=== PATIENT | female | born 1940 | race Caucasian/White ===

== ENCOUNTER 2017-11-15 11:46 | Inpatient (IN) | payer MEDICARE, OTHER ==
[2017-11-15] MEDS: ALBUTEROL 0.5% (NEB) 2.5 MG/0.5 ML AMP INH ×2 (14:15→17:02)
[2017-11-15] MEDS: IPRATROPIUM (NEB) 0.5 MG/2.5 ML AMP INH (14:15)
[2017-11-15] MEDS: predniSONE 50 MG TAB PO (15:05)
[2017-11-15 18:07] LABS: ADD MAN DIFF? NO
[2017-11-15 18:09] LABS: WHITE BLOOD COUNT 9.5 10^3/ul (4.8-10.8)
[2017-11-15 18:09] LABS: BASOPHIL # 0.1 10^3/ul (0.0-0.1); BASOPHILS % 0.7 % (0.0-2.0); EOSINOPHILS # 0.3 10^3/ul (0.0-0.5); EOSINOPHILS % 2.6 % (0.0-7.0); HEMATOCRIT 42.4 % (37.0-47.0); HEMOGLOBIN 13.9 g/dl (12.0-16.0); LYMPHOCYTES # 2.6 10^3/ul (0.8-2.9); LYMPHOCYTES % 27.5 % (15.0-51.0); MEAN CORPUSCULAR HEMOGLOBIN 29.3 pg (29.0-33.0); MEAN CORPUSCULAR HGB CONC 32.8 g/dl (32.0-37.0); MEAN CORPUSCULAR VOLUME 89.3 fl (82.0-101.0); MEAN PLATELET VOLUME 11.9 fl (7.4-10.4); MONOCYTE # 0.3 10^3/ul (0.3-0.9); MONOCYTES % 3.1 % (0.0-11.0); NEUTROPHIL # 6.2 10^3/ul (1.6-7.5); NEUTROPHILS % 65.7 % (39.0-77.0); PLATELET COUNT 178 10^3/UL (140-415); RED BLOOD COUNT 4.75 10^6/ul (4.20-5.40); RED CELL DISTRIBUTION WIDTH 12.8 % (11.5-14.5)
[2017-11-15 18:34] LABS: ANION GAP 13 (8-16); BLOOD UREA NITROGEN 12 mg/dl (7-20); CALCIUM 9.4 mg/dl (8.4-10.2); CARBON DIOXIDE 30 mmol/L (21-31); CHLORIDE 98 mmol/L (97-110); CREATININE 0.51 mg/dl (0.44-1.00); GLUCOSE 215 mg/dl (70-220); POTASSIUM 3.9 mmol/L (3.5-5.1); SODIUM 137 mmol/L (135-144)
[2017-11-15 18:48] LABS: TROPONIN-I < 0.012 ng/ml (0.00-0.12)
[2017-11-15] MEDS ORDERED: ACETAMINOPHEN 325 MG TAB PO ×2 (19:30→20:00)
[2017-11-15] MEDS ORDERED: ONDANSETRON 4 MG INJ IV (19:30)
[2017-11-15] MEDS ORDERED: IPRATROPIUM (NEB) 0.5 MG/2.5 ML AMP HHN (20:00)
[2017-11-15] MEDS ORDERED: NACL 0.9% 3 ML SYG IV (20:00)
[2017-11-15] MEDS ORDERED: ONDANSETRON 4 MG TAB PO (20:00)
[2017-11-15] MEDS ORDERED: DOCUSATE SODIUM 100 MG CAP PO (20:00)
[2017-11-15] MEDS ORDERED: BISACODYL (EC) 5 MG TAB PO (20:00)
[2017-11-15] MEDS ORDERED: GLUCOSE GEL 15 GRAM TUBE BUCCAL (21:00)
[2017-11-15] MEDS ORDERED: GLUCOSE GEL 15 GRAM TUBE PO ×2 (21:00)
[2017-11-15] MEDS ORDERED: GLUCAGON 1 MG INJ IM (21:00)
[2017-11-15] MEDS ORDERED: DEXTROSE 50% 50 ML SYRINGE IV ×2 (21:00)
[2017-11-15] MEDS ORDERED: NON-FORMULARY/PATIENT OWN MED (Mometasone-Formoterol (Dulera) 2 PUFFS) IH (21:00)
[2017-11-15] MEDS: INSULIN GLARGINE [LANtus] 3 ML PEN SC (21:38)
[2017-11-15] MEDS: INSULIN ASPART [NOVOLOG] 3 ML PEN SC (21:41)
[2017-11-15] MEDS: SALMETEROL/FLUTICASONE 250/50 INHA INH (22:44)
[2017-11-15] MEDS: MONTELUKAST 10 MG TAB PO (22:44)
[2017-11-15] MEDS: ALBUTEROL 0.083% (NEB) 2.5 MG/3 ML AMP HHN (23:07)
[2017-11-16] MEDS: ALBUTEROL 0.083% (NEB) 2.5 MG/3 ML AMP HHN ×6 (02:03→20:14)
[2017-11-16] MEDS: ACCU-CHEK XX (02:13)
[2017-11-16 05:28] LABS: ADD MAN DIFF? NO
[2017-11-16 05:49] LABS: BASOPHILS % 0.6 % (0.0-2.0); HEMATOCRIT 37.6 % (37.0-47.0); HEMOGLOBIN 12.4 g/dl (12.0-16.0); LYMPHOCYTES # 1.2 10^3/ul (0.8-2.9); LYMPHOCYTES % 21.2 % (15.0-51.0); MEAN CORPUSCULAR VOLUME 88.1 fl (82.0-101.0); MEAN PLATELET VOLUME 12.3 fl (7.4-10.4); MONOCYTE # 0.2 10^3/ul (0.3-0.9); MONOCYTES % 4.2 % (0.0-11.0); NEUTROPHILS % 73.6 % (39.0-77.0); PLATELET COUNT 176 10^3/UL (140-415); RED BLOOD COUNT 4.27 10^6/ul (4.20-5.40); RED CELL DISTRIBUTION WIDTH 12.7 % (11.5-14.5)
[2017-11-16 05:49] LABS: WHITE BLOOD COUNT 5.4 10^3/ul (4.8-10.8)
[2017-11-16] MEDS: PANTOPRAZOLE (EC) 40 MG TAB PO (06:08)
[2017-11-16 06:37] LABS: ALANINE AMINOTRANSFERASE 23 IU/L (13-69); ALBUMIN 3.6 g/dl (3.3-4.9); ALBUMIN/GLOBULIN RATIO 1.02; ALKALINE PHOSPHATASE 90 IU/L (42-121); ANION GAP 16 (8-16); ASPARTATE AMINO TRANSFERASE 18 IU/L (15-46); BILIRUBIN,INDIRECT 0.2 mg/dl (0-1.1); BILIRUBIN,TOTAL 0.2 mg/dl (0.2-1.3); BLOOD UREA NITROGEN 19 mg/dl (7-20); CALCIUM 9.2 mg/dl (8.4-10.2); CARBON DIOXIDE 31 mmol/L (21-31); CHLORIDE 98 mmol/L (97-110); CREATININE 0.56 mg/dl (0.44-1.00); GLUCOSE 313 mg/dl (70-220); MAGNESIUM 1.5 mg/dl (1.7-2.5); POTASSIUM 4.1 mmol/L (3.5-5.1); SODIUM 141 mmol/L (135-144); TOTAL PROTEIN 7.1 g/dl (6.1-8.1)
[2017-11-16 07:56] LABS: HEMOGLOBIN A1C 9.5 % (0-5.9)
[2017-11-16] MEDS: predniSONE 50 MG TAB PO (08:59)
[2017-11-16] MEDS: EZETIMIBE 10 MG TAB PO (08:59)
[2017-11-16] MEDS: SALMETEROL/FLUTICASONE 250/50 INHA INH ×2 (08:59→20:26)
[2017-11-16] MEDS: INSULIN ASPART [NOVOLOG] 3 ML PEN SC ×7 (09:06→20:30)
[2017-11-16] MEDS: MAGNESIUM SULFATE 2 GM/50 ML 50 ML IVPB (12:23)
[2017-11-16] MEDS: MONTELUKAST 10 MG TAB PO (20:27)
[2017-11-16] MEDS: INSULIN GLARGINE [LANtus] 3 ML PEN SC (20:31)
[2017-11-17] MEDS: ALBUTEROL 0.083% (NEB) 2.5 MG/3 ML AMP HHN ×6 (00:41→19:25)
[2017-11-17] MEDS: ACCU-CHEK XX (01:52)
[2017-11-17] MEDS: PANTOPRAZOLE (EC) 40 MG TAB PO (05:38)
[2017-11-17 05:51] LABS: ADD MAN DIFF? NO
[2017-11-17 05:59] LABS: WHITE BLOOD COUNT 7.7 10^3/ul (4.8-10.8)
[2017-11-17 05:59] LABS: BASOPHIL # 0.1 10^3/ul (0.0-0.1); BASOPHILS % 0.6 % (0.0-2.0); EOSINOPHILS % 0.5 % (0.0-7.0); HEMATOCRIT 35.4 % (37.0-47.0); HEMOGLOBIN 11.8 g/dl (12.0-16.0); LYMPHOCYTES # 2.4 10^3/ul (0.8-2.9); LYMPHOCYTES % 30.6 % (15.0-51.0); MEAN CORPUSCULAR HEMOGLOBIN 29.5 pg (29.0-33.0); MEAN CORPUSCULAR HGB CONC 33.3 g/dl (32.0-37.0); MEAN CORPUSCULAR VOLUME 88.5 fl (82.0-101.0); MEAN PLATELET VOLUME 12.1 fl (7.4-10.4); MONOCYTE # 0.7 10^3/ul (0.3-0.9); MONOCYTES % 8.5 % (0.0-11.0); NEUTROPHIL # 4.6 10^3/ul (1.6-7.5); NEUTROPHILS % 59.5 % (39.0-77.0); PLATELET COUNT 174 10^3/UL (140-415); RED CELL DISTRIBUTION WIDTH 13.2 % (11.5-14.5)
[2017-11-17 06:29] LABS: INR 1.01; PROTIME 13.4 Sec (11.9-14.9)
[2017-11-17 06:30] LABS: PARTIAL THROMBOPLASTIN TIME 30.6 Sec (25.0-35.0)
[2017-11-17 07:04] LABS: ANION GAP 15 (8-16); BLOOD UREA NITROGEN 19 mg/dl (7-20); CALCIUM 9.1 mg/dl (8.4-10.2); CARBON DIOXIDE 29 mmol/L (21-31); CHLORIDE 100 mmol/L (97-110); CREATININE 0.61 mg/dl (0.44-1.00); GLUCOSE 180 mg/dl (70-220); POTASSIUM 3.8 mmol/L (3.5-5.1); SODIUM 140 mmol/L (135-144)
[2017-11-17 07:07] LABS: CHOLESTEROL 151 mg/dl (100-200); HDL CHOLESTEROL 49 mg/dl (33-92); LDL CHOLESTEROL,CALCULATED 90 mg/dl; TRIGLYCERIDES 62 mg/dl (0-149)
[2017-11-17 07:07] LABS: PHOSPHORUS 4.3 mg/dl (2.5-4.9)
[2017-11-17] MEDS: INSULIN ASPART [NOVOLOG] 3 ML PEN SC ×7 (09:03→21:03)
[2017-11-17] MEDS: predniSONE 50 MG TAB PO (09:03)
[2017-11-17] MEDS: EZETIMIBE 10 MG TAB PO (09:03)
[2017-11-17] MEDS: SALMETEROL/FLUTICASONE 250/50 INHA INH ×2 (09:04→20:49)
[2017-11-17] MEDS: ENOXAPARIN 40 MG/0.4 ML SYG SC ×2 (09:30→12:29)
[2017-11-17] MEDS: MONTELUKAST 10 MG TAB PO (20:49)
[2017-11-17] MEDS: INSULIN GLARGINE [LANtus] 3 ML PEN SC (20:52)
[2017-11-18] MEDS: ALBUTEROL 0.083% (NEB) 2.5 MG/3 ML AMP HHN ×3 (00:46→09:00)
[2017-11-18] MEDS: ACCU-CHEK XX (02:11)
[2017-11-18 05:50] LABS: ADD MAN DIFF? NO
[2017-11-18] MEDS: PANTOPRAZOLE (EC) 40 MG TAB PO (05:53)
[2017-11-18 05:58] LABS: WHITE BLOOD COUNT 7.8 10^3/ul (4.8-10.8)
[2017-11-18 05:58] LABS: BASOPHIL # 0.1 10^3/ul (0.0-0.1); BASOPHILS % 0.8 % (0.0-2.0); EOSINOPHILS # 0.1 10^3/ul (0.0-0.5); EOSINOPHILS % 0.6 % (0.0-7.0); HEMATOCRIT 37.5 % (37.0-47.0); HEMOGLOBIN 12.4 g/dl (12.0-16.0); LYMPHOCYTES # 3.1 10^3/ul (0.8-2.9); LYMPHOCYTES % 39.2 % (15.0-51.0); MEAN CORPUSCULAR HEMOGLOBIN 29.5 pg (29.0-33.0); MEAN CORPUSCULAR HGB CONC 33.1 g/dl (32.0-37.0); MEAN CORPUSCULAR VOLUME 89.3 fl (82.0-101.0); MEAN PLATELET VOLUME 12.2 fl (7.4-10.4); MONOCYTE # 0.6 10^3/ul (0.3-0.9); MONOCYTES % 8.1 % (0.0-11.0); PLATELET COUNT 185 10^3/UL (140-415); RED CELL DISTRIBUTION WIDTH 13.2 % (11.5-14.5)
[2017-11-18 06:16] LABS: ANION GAP 13 (8-16); BLOOD UREA NITROGEN 18 mg/dl (7-20); CALCIUM 9.2 mg/dl (8.4-10.2); CARBON DIOXIDE 32 mmol/L (21-31); CHLORIDE 99 mmol/L (97-110); GLUCOSE 155 mg/dl (70-220); MAGNESIUM 1.8 mg/dl (1.7-2.5); POTASSIUM 4.1 mmol/L (3.5-5.1); SODIUM 140 mmol/L (135-144)
[2017-11-18 06:16] LABS: PHOSPHORUS 4.1 mg/dl (2.5-4.9)
[2017-11-18] MEDS: INSULIN ASPART [NOVOLOG] 3 ML PEN SC ×7 (07:50→21:08)
[2017-11-18] MEDS: ENOXAPARIN 40 MG/0.4 ML SYG SC (09:26)
[2017-11-18] MEDS: predniSONE 50 MG TAB PO (09:26)
[2017-11-18] MEDS: EZETIMIBE 10 MG TAB PO (09:26)
[2017-11-18] MEDS: SALMETEROL/FLUTICASONE 250/50 INHA INH ×2 (09:27→21:04)
[2017-11-18] MEDS: ALBUTEROL/IPRATROPIUM (NEB) 3 ML AMP HHN ×2 (14:20→20:33)
[2017-11-18] MEDS: MONTELUKAST 10 MG TAB PO (21:05)
[2017-11-18] MEDS: INSULIN GLARGINE [LANtus] 3 ML PEN SC (21:09)
[2017-11-19] MEDS: ACCU-CHEK XX (02:09)
[2017-11-19] MEDS: PANTOPRAZOLE (EC) 40 MG TAB PO (05:50)
[2017-11-19] MEDS: INSULIN ASPART [NOVOLOG] 3 ML PEN SC ×7 (07:50→21:00)
[2017-11-19] MEDS: ALBUTEROL/IPRATROPIUM (NEB) 3 ML AMP HHN ×3 (08:31→20:55)
[2017-11-19] MEDS: EZETIMIBE 10 MG TAB PO (08:44)
[2017-11-19] MEDS: predniSONE 10 MG TAB PO (08:45)
[2017-11-19] MEDS: ENOXAPARIN 40 MG/0.4 ML SYG SC (08:46)
[2017-11-19] MEDS: SALMETEROL/FLUTICASONE 250/50 INHA INH ×2 (08:47→21:03)
[2017-11-19] MEDS: AZITHROMYCIN 250 MG TAB PO (17:44)
[2017-11-19] MEDS: MONTELUKAST 10 MG TAB PO (21:04)
[2017-11-19] MEDS: INSULIN GLARGINE [LANtus] 3 ML PEN SC (21:08)
[2017-11-20] MEDS: ACCU-CHEK XX (01:30)
[2017-11-20] MEDS: PANTOPRAZOLE (EC) 40 MG TAB PO (06:24)
[2017-11-20 06:34] LABS: ADD MAN DIFF? NO
[2017-11-20 06:56] LABS: BASOPHILS % 0.4 % (0.0-2.0); EOSINOPHILS % 0.5 % (0.0-7.0); HEMATOCRIT 37.2 % (37.0-47.0); HEMOGLOBIN 12.6 g/dl (12.0-16.0); MEAN CORPUSCULAR HEMOGLOBIN 29.9 pg (29.0-33.0); MEAN CORPUSCULAR HGB CONC 33.9 g/dl (32.0-37.0); MEAN CORPUSCULAR VOLUME 88.4 fl (82.0-101.0); MONOCYTE # 0.7 10^3/ul (0.3-0.9); MONOCYTES % 8.8 % (0.0-11.0); NEUTROPHIL # 4.3 10^3/ul (1.6-7.5); NEUTROPHILS % 52.9 % (39.0-77.0); PLATELET COUNT 195 10^3/UL (140-415); RED BLOOD COUNT 4.21 10^6/ul (4.20-5.40); RED CELL DISTRIBUTION WIDTH 13.1 % (11.5-14.5)
[2017-11-20 06:56] LABS: WHITE BLOOD COUNT 8.1 10^3/ul (4.8-10.8)
[2017-11-20 07:00] LABS: ANION GAP 16 (8-16); BLOOD UREA NITROGEN 23 mg/dl (7-20); CARBON DIOXIDE 31 mmol/L (21-31); CHLORIDE 99 mmol/L (97-110); CREATININE 0.65 mg/dl (0.44-1.00); GLUCOSE 135 mg/dl (70-220); SODIUM 142 mmol/L (135-144)
[2017-11-20] MEDS: ALBUTEROL/IPRATROPIUM (NEB) 3 ML AMP HHN (08:00)
[2017-11-20] MEDS: EZETIMIBE 10 MG TAB PO (09:13)
[2017-11-20] MEDS: AZITHROMYCIN 250 MG TAB PO (09:13)
[2017-11-20] MEDS: predniSONE 10 MG TAB PO (09:14)
[2017-11-20] MEDS: SALMETEROL/FLUTICASONE 250/50 INHA INH (09:14)
[2017-11-20] MEDS: INSULIN ASPART [NOVOLOG] 3 ML PEN SC ×4 (09:15→13:22)
[2017-11-20] MEDS: ENOXAPARIN 40 MG/0.4 ML SYG SC (09:16)
== END 2017-11-20 16:58 | disposition home or self-care (01) | DRG 202 ==
LOC: FTE 11:46 → MS1 19:17
DX: J45.901 Unspecified asthma with (acute) exacerbation (principal); J44.0 Chronic obstructive pulmonary disease with (acute) lower respiratory infection; J84.10 Pulmonary fibrosis, unspecified; E11.9 Type 2 diabetes mellitus without complications; J20.9 Acute bronchitis, unspecified; K21.9 Gastro-esophageal reflux disease without esophagitis; E78.5 Hyperlipidemia, unspecified; T59.811A Toxic effect of smoke, accidental (unintentional), initial encounter
CPT/HCPCS: 36415; 71010; 71250; 80048; 80053; 80061; 82962; 83036; 83735; 84100; 84484; 85025; 85610; 85730; 94640; 94644; 94645; 94664; 96372; 99285-25

== ENCOUNTER 2017-12-12 16:50 | Emergency (ER) | payer MEDICARE, OTHER ==
[2017-12-12] MEDS: predniSONE 20 MG TAB PO (17:39)
[2017-12-12] MEDS: ALBUTEROL 0.5% (NEB) 2.5 MG/0.5 ML AMP INH (17:39)
[2017-12-12] MEDS: IPRATROPIUM (NEB) 0.5 MG/2.5 ML AMP INH (17:40)
[2017-12-12] MEDS: KETOROLAC 15 MG INJ IV (17:43)
[2017-12-12] MEDS: SOD CHLORIDE 0.9% 500 ML IV (17:46)
[2017-12-12 17:51] LABS: ADD MAN DIFF? NO
[2017-12-12 17:53] LABS: WHITE BLOOD COUNT 5.6 10^3/ul (4.8-10.8)
[2017-12-12 17:53] LABS: BASOPHIL # 0.1 10^3/ul (0.0-0.1); BASOPHILS % 0.9 % (0.0-2.0); EOSINOPHILS # 0.7 10^3/ul (0.0-0.5); EOSINOPHILS % 12.2 % (0.0-7.0); HEMATOCRIT 40.2 % (37.0-47.0); HEMOGLOBIN 13.4 g/dl (12.0-16.0); LYMPHOCYTES # 1.5 10^3/ul (0.8-2.9); LYMPHOCYTES % 26.4 % (15.0-51.0); MEAN CORPUSCULAR HEMOGLOBIN 29.3 pg (29.0-33.0); MEAN CORPUSCULAR HGB CONC 33.3 g/dl (32.0-37.0); MEAN PLATELET VOLUME 11.6 fl (7.4-10.4); MONOCYTE # 0.6 10^3/ul (0.3-0.9); MONOCYTES % 10.4 % (0.0-11.0); NEUTROPHIL # 2.8 10^3/ul (1.6-7.5); NEUTROPHILS % 49.7 % (39.0-77.0); PLATELET COUNT 175 10^3/UL (140-415); RED BLOOD COUNT 4.57 10^6/ul (4.20-5.40); RED CELL DISTRIBUTION WIDTH 13.2 % (11.5-14.5)
[2017-12-12 18:20] LABS: ALANINE AMINOTRANSFERASE 27 IU/L (13-69); ALBUMIN 3.9 g/dl (3.3-4.9); ALBUMIN/GLOBULIN RATIO 1.21; ALKALINE PHOSPHATASE 98 IU/L (42-121); ANION GAP 13 (8-16); ASPARTATE AMINO TRANSFERASE 16 IU/L (15-46); BILIRUBIN,INDIRECT 0.3 mg/dl (0-1.1); BILIRUBIN,TOTAL 0.3 mg/dl (0.2-1.3); BLOOD UREA NITROGEN 14 mg/dl (7-20); CALCIUM 8.9 mg/dl (8.4-10.2); CARBON DIOXIDE 31 mmol/L (21-31); CHLORIDE 96 mmol/L (97-110); CREATININE 0.53 mg/dl (0.44-1.00); LIPASE 90 U/L (23-300); POTASSIUM 3.9 mmol/L (3.5-5.1); SODIUM 136 mmol/L (135-144); TOTAL PROTEIN 7.1 g/dl (6.1-8.1)
[2017-12-12 18:22] LABS: GLUCOSE 400 mg/dl (70-220)
[2017-12-12] MEDS: INSULIN LISPRO 100 UNIT/ML VIAL SC (18:34)
[2017-12-12 18:43] LABS: TROPONIN-I < 0.012 ng/ml (0.00-0.12)
== END 2017-12-12 21:13 | disposition home or self-care (01) ==
LOC: E/R 16:50
DX: J00 Acute nasopharyngitis [common cold] (principal); J45.41 Moderate persistent asthma with (acute) exacerbation; I10 Essential (primary) hypertension; E11.65 Type 2 diabetes mellitus with hyperglycemia; Z79.4 Long term (current) use of insulin
CPT/HCPCS: 36415; 71045; 80053; 82962; 83690; 84484; 85025; 87400; 93005; 94644; 96372; 96374; 99285-25

== ENCOUNTER 2018-09-05 16:09 | Inpatient (IN) | payer MEDICARE, OTHER ==
[2018-09-05] MEDS: SOD CHLORIDE 0.9% 500 ML IV
[2018-09-05 20:24] LABS: BASOPHIL # 0.1 10^3/ul (0.0-0.1); BASOPHILS % 0.7 % (0.0-2.0); EOSINOPHILS # 0.6 10^3/ul (0.0-0.5); EOSINOPHILS % 8.9 % (0.0-7.0); HEMATOCRIT 41.3 % (37.0-47.0); HEMOGLOBIN 13.3 g/dl (12.0-16.0); LYMPHOCYTES # 2.3 10^3/ul (0.8-2.9); LYMPHOCYTES % 32.7 % (15.0-51.0); MEAN CORPUSCULAR HGB CONC 32.2 g/dl (32.0-37.0); MEAN CORPUSCULAR VOLUME 90.2 fl (82.0-101.0); MEAN PLATELET VOLUME 10.7 fl (7.4-10.4); MONOCYTE # 0.6 10^3/ul (0.3-0.9); MONOCYTES % 8.2 % (0.0-11.0); NEUTROPHIL # 3.4 10^3/ul (1.6-7.5); NEUTROPHILS % 49.2 % (39.0-77.0); PLATELET COUNT 201 10^3/UL (140-415); RED BLOOD COUNT 4.58 10^6/ul (4.20-5.40); RED CELL DISTRIBUTION WIDTH 13.1 % (11.5-14.5)
[2018-09-05 20:25] LABS: ADD MAN DIFF? NO
[2018-09-05] MEDS: ALBUTEROL 0.5% (NEB) 2.5 MG/0.5 ML AMP INH (20:29)
[2018-09-05] MEDS: IPRATROPIUM (NEB) 0.5 MG/2.5 ML AMP INH (20:29)
[2018-09-05] MEDS: SOD CHLORIDE 0.9% 1,000 ML IV (20:34)
[2018-09-05] MEDS: METHYLPREDNISOLONE 125 MG INJ IV (20:34)
[2018-09-05 20:37] LABS: ADD UMIC YES; UR ASCORBIC ACID 40 mg/dL (NEGATIVE); UR BACTERIA FEW /HPF (NONE SEEN); UR BILIRUBIN (Dip) NEGATIVE (NEGATIVE); UR BLOOD (Dip) NEGATIVE (NEGATIVE); UR CLARITY CLOUDY (CLEAR); UR COLOR AMBER (YELLOW); UR GLUCOSE (Dip) NEGATIVE (NEGATIVE); UR KETONES (Dip) TRACE mg/dL (NEGATIVE); UR LEUKOCYTE ESTERASE (Dip) 3+ Leu/ul (NEGATIVE); UR MUCUS MANY /HPF (NONE SEEN); UR NITRITE (Dip) NEGATIVE (NEGATIVE); UR RBC 17 /HPF (0-5); UR SQUAMOUS EPITHELIAL CELL FEW /HPF (FEW); UR TOTAL PROTEIN (Dip) 1+ mg/dl (NEGATIVE); UR UROBILINOGEN (Dip) 2+ mg/dL (NEGATIVE); UR WBC 74 /HPF (0-5)
[2018-09-05 20:48] LABS: ALANINE AMINOTRANSFERASE 30 IU/L (13-69); ALBUMIN 3.2 g/dl (3.3-4.9); ALBUMIN/GLOBULIN RATIO 0.86; ALKALINE PHOSPHATASE 95 IU/L (42-121); ANION GAP 6 (5-13); ASPARTATE AMINO TRANSFERASE 31 IU/L (15-46); BILIRUBIN,INDIRECT 0.5 mg/dl (0-1.1); BILIRUBIN,TOTAL 0.5 mg/dl (0.2-1.3); BLOOD UREA NITROGEN 25 mg/dl (7-20); CALCIUM 8.8 mg/dl (8.4-10.2); CARBON DIOXIDE 31 mmol/L (21-31); CHLORIDE 104 mmol/L (97-110); CREATININE 0.82 mg/dl (0.44-1.00); GLUCOSE 121 mg/dl (70-220); POTASSIUM 3.9 mmol/L (3.5-5.1); SODIUM 141 mmol/L (135-144); TOTAL PROTEIN 6.9 g/dl (6.1-8.1)
[2018-09-05 20:57] LABS: B-TYPE NATRIURETIC PEPTIDE 30 PG/ML (0-450); TROPONIN-I < 0.012 ng/ml (0.000-0.120)
[2018-09-05] MEDS ORDERED: ONDANSETRON 4 MG INJ IV (22:00)
[2018-09-05] MEDS ORDERED: ACETAMINOPHEN 325 MG TAB PO (22:00)
[2018-09-05] MEDS: CEFTRIAXONE 1 GM/50 ML (PMX) 50 ML IVPB (22:39)
[2018-09-05] MEDS ORDERED: MECLIZINE 25 MG TAB PO (23:00)
[2018-09-06] MEDS: GUAIFENESIN/DM 5ML CUP PO (00:19)
[2018-09-06] MEDS ORDERED: GLUCOSE GEL 15 GRAM TUBE BUCCAL (00:30)
[2018-09-06] MEDS ORDERED: DEXTROSE 50% 50 ML SYRINGE IV ×2 (00:30)
[2018-09-06] MEDS ORDERED: GLUCOSE GEL 15 GRAM TUBE PO ×2 (00:30)
[2018-09-06] MEDS ORDERED: GLUCAGON 1 MG INJ IM (00:30)
[2018-09-06] MEDS: ALBUTEROL 0.083% (NEB) 2.5 MG/3 ML AMP HHN ×6 (01:49→20:35)
[2018-09-06] MEDS: LEVOFLOXACIN 750 MG TABLET PO (06:54)
[2018-09-06] MEDS: PANTOPRAZOLE (EC) 40 MG TAB PO (07:07)
[2018-09-06] MEDS: INSULIN ASPART [NOVOLOG] 3 ML PEN SC ×4 (08:26→21:29)
[2018-09-06] MEDS ORDERED: DONEPEZIL 5 MG PO (09:00)
[2018-09-06] MEDS: DONEPEZIL 5 MG TAB PO (09:23)
[2018-09-06] MEDS: EZETIMIBE 10 MG TAB PO (09:23)
[2018-09-06] MEDS: FLUTICASONE/VILANTEROL 200-25 INH DEVICE INH (09:23)
[2018-09-06] MEDS: predniSONE 20 MG TAB PO (09:25)
[2018-09-06] MEDS ORDERED: CEPASTAT LOZENGE MT (10:00)
[2018-09-06] MEDS: ENOXAPARIN 40 MG/0.4 ML SYG SC (12:17)
[2018-09-06 13:08] LABS: HEMOGLOBIN A1C 8.2 % (0-5.9)
[2018-09-06] MEDS: METHYLPREDNISOLONE 40 MG INJ IV (22:50)
[2018-09-06] MEDS: INSULIN ASP PROT/ASPART (70/30) PEN SC (22:54)
[2018-09-07] MEDS: ALBUTEROL 0.083% (NEB) 2.5 MG/3 ML AMP HHN ×6 (01:24→20:56)
[2018-09-07 05:11] LABS: ADD MAN DIFF? NO
[2018-09-07 05:12] LABS: BASOPHILS % 0.1 % (0.0-2.0); HEMATOCRIT 38.7 % (37.0-47.0); HEMOGLOBIN 12.4 g/dl (12.0-16.0); LYMPHOCYTES # 0.8 10^3/ul (0.8-2.9); LYMPHOCYTES % 7.2 % (15.0-51.0); MEAN CORPUSCULAR HEMOGLOBIN 29.3 pg (29.0-33.0); MEAN CORPUSCULAR VOLUME 91.5 fl (82.0-101.0); MEAN PLATELET VOLUME 11.3 fl (7.4-10.4); MONOCYTE # 0.1 10^3/ul (0.3-0.9); MONOCYTES % 0.8 % (0.0-11.0); NEUTROPHIL # 9.6 10^3/ul (1.6-7.5); NEUTROPHILS % 91.5 % (39.0-77.0); PLATELET COUNT 204 10^3/UL (140-415); RED BLOOD COUNT 4.23 10^6/ul (4.20-5.40); RED CELL DISTRIBUTION WIDTH 13.2 % (11.5-14.5)
[2018-09-07 05:12] LABS: WHITE BLOOD COUNT 10.5 10^3/ul (4.8-10.8)
[2018-09-07 06:02] LABS: ALBUMIN 2.9 g/dl (3.3-4.9); ANION GAP 7 (5-13); BLOOD UREA NITROGEN 20 mg/dl (7-20); CARBON DIOXIDE 28 mmol/L (21-31); CHLORIDE 105 mmol/L (97-110); CREATININE 0.53 mg/dl (0.44-1.00); GLUCOSE 309 mg/dl (70-220); MAGNESIUM 1.8 mg/dl (1.7-2.5); PHOSPHORUS 2.4 mg/dl (2.5-4.9); POTASSIUM 5.1 mmol/L (3.5-5.1); SODIUM 140 mmol/L (135-144)
[2018-09-07] MEDS: LEVOFLOXACIN 750 MG TABLET PO (06:18)
[2018-09-07] MEDS: PANTOPRAZOLE (EC) 40 MG TAB PO (06:18)
[2018-09-07] MEDS: INSULIN ASPART [NOVOLOG] 3 ML PEN SC ×4 (07:57→20:26)
[2018-09-07] MEDS: METHYLPREDNISOLONE 40 MG INJ IV ×2 (08:11→20:10)
[2018-09-07] MEDS: FLUTICASONE/VILANTEROL 200-25 INH DEVICE INH (08:11)
[2018-09-07] MEDS: DONEPEZIL 5 MG TAB PO (08:12)
[2018-09-07] MEDS: EZETIMIBE 10 MG TAB PO (08:12)
[2018-09-07] MEDS: GUAIFENESIN/DM 5ML CUP PO ×2 (08:12→20:15)
[2018-09-07] MEDS: INSULIN ASP PROT/ASPART (70/30) PEN SC ×2 (08:26→20:25)
[2018-09-07] MEDS: ENOXAPARIN 40 MG/0.4 ML SYG SC (08:30)
[2018-09-07] MEDS: NON-FORMULARY/PATIENT OWN MED (Linaclotide (Linzess) 145 MCG) XX (12:14)
[2018-09-07] MEDS: FISH OIL 1,000 MG CAP PO ×2 (12:18→20:11)
[2018-09-07] MEDS: IPRATROPIUM (NEB) 0.5 MG/2.5 ML AMP HHN (20:56)
[2018-09-08] MEDS: ALBUTEROL 0.083% (NEB) 2.5 MG/3 ML AMP HHN ×6 (01:40→20:00)
[2018-09-08] MEDS: IPRATROPIUM (NEB) 0.5 MG/2.5 ML AMP HHN ×2 (01:40→05:23)
[2018-09-08 05:49] LABS: ADD MAN DIFF? NO
[2018-09-08 05:52] LABS: BASOPHILS % 0.1 % (0.0-2.0); HEMATOCRIT 39.6 % (37.0-47.0); HEMOGLOBIN 12.7 g/dl (12.0-16.0); LYMPHOCYTES # 0.6 10^3/ul (0.8-2.9); LYMPHOCYTES % 5.9 % (15.0-51.0); MEAN CORPUSCULAR HGB CONC 32.1 g/dl (32.0-37.0); MEAN CORPUSCULAR VOLUME 90.4 fl (82.0-101.0); MEAN PLATELET VOLUME 11.9 fl (7.4-10.4); MONOCYTE # 0.2 10^3/ul (0.3-0.9); NEUTROPHIL # 9.8 10^3/ul (1.6-7.5); NEUTROPHILS % 91.5 % (39.0-77.0); PLATELET COUNT 212 10^3/UL (140-415); RED BLOOD COUNT 4.38 10^6/ul (4.20-5.40); RED CELL DISTRIBUTION WIDTH 13.2 % (11.5-14.5)
[2018-09-08 05:52] LABS: WHITE BLOOD COUNT 10.7 10^3/ul (4.8-10.8)
[2018-09-08 06:11] LABS: ALBUMIN 3.4 g/dl (3.3-4.9); ANION GAP 10 (5-13); BLOOD UREA NITROGEN 19 mg/dl (7-20); CALCIUM 8.8 mg/dl (8.4-10.2); CARBON DIOXIDE 26 mmol/L (21-31); CHLORIDE 102 mmol/L (97-110); CREATININE 0.55 mg/dl (0.44-1.00); GLUCOSE 382 mg/dl (70-220); MAGNESIUM 1.8 mg/dl (1.7-2.5); PHOSPHORUS 2.4 mg/dl (2.5-4.9); POTASSIUM 4.2 mmol/L (3.5-5.1); SODIUM 138 mmol/L (135-144)
[2018-09-08] MEDS: LEVOFLOXACIN 750 MG TABLET PO (06:30)
[2018-09-08] MEDS: PANTOPRAZOLE (EC) 40 MG TAB PO (06:30)
[2018-09-08] MEDS: INSULIN ASPART [NOVOLOG] 3 ML PEN SC ×4 (08:09→20:51)
[2018-09-08] MEDS: FLUTICASONE/VILANTEROL 200-25 INH DEVICE INH (08:30)
[2018-09-08] MEDS: METHYLPREDNISOLONE 40 MG INJ IV (08:31)
[2018-09-08] MEDS: DONEPEZIL 5 MG TAB PO (08:31)
[2018-09-08] MEDS: FISH OIL 1,000 MG CAP PO ×2 (08:31→20:47)
[2018-09-08] MEDS: EZETIMIBE 10 MG TAB PO (08:31)
[2018-09-08] MEDS: INSULIN ASP PROT/ASPART (70/30) PEN SC (08:35)
[2018-09-08] MEDS: ENOXAPARIN 40 MG/0.4 ML SYG SC (08:41)
[2018-09-09] MEDS: ALBUTEROL 0.083% (NEB) 2.5 MG/3 ML AMP HHN ×4 (01:09→13:03)
[2018-09-09] MEDS: PANTOPRAZOLE (EC) 40 MG TAB PO (05:35)
[2018-09-09] MEDS: LEVOFLOXACIN 750 MG TABLET PO (05:35)
[2018-09-09 05:40] LABS: ADD MAN DIFF? NO
[2018-09-09 05:56] LABS: BASOPHILS % 0.1 % (0.0-2.0); HEMATOCRIT 38.2 % (37.0-47.0); HEMOGLOBIN 12.5 g/dl (12.0-16.0); LYMPHOCYTES # 1.8 10^3/ul (0.8-2.9); LYMPHOCYTES % 16.7 % (15.0-51.0); MEAN CORPUSCULAR HEMOGLOBIN 29.3 pg (29.0-33.0); MEAN CORPUSCULAR HGB CONC 32.7 g/dl (32.0-37.0); MEAN CORPUSCULAR VOLUME 89.7 fl (82.0-101.0); MEAN PLATELET VOLUME 11.7 fl (7.4-10.4); MONOCYTE # 0.9 10^3/ul (0.3-0.9); NEUTROPHILS % 74.8 % (39.0-77.0); PLATELET COUNT 183 10^3/UL (140-415); RED BLOOD COUNT 4.26 10^6/ul (4.20-5.40); RED CELL DISTRIBUTION WIDTH 13.3 % (11.5-14.5)
[2018-09-09 05:56] LABS: WHITE BLOOD COUNT 10.7 10^3/ul (4.8-10.8)
[2018-09-09 06:15] LABS: ANION GAP 7 (5-13); BLOOD UREA NITROGEN 24 mg/dl (7-20); CALCIUM 8.9 mg/dl (8.4-10.2); CARBON DIOXIDE 32 mmol/L (21-31); CHLORIDE 99 mmol/L (97-110); CREATININE 0.57 mg/dl (0.44-1.00); GLUCOSE 268 mg/dl (70-220); MAGNESIUM 1.8 mg/dl (1.7-2.5); PHOSPHORUS 2.5 mg/dl (2.5-4.9); POTASSIUM 4.2 mmol/L (3.5-5.1); SODIUM 138 mmol/L (135-144)
[2018-09-09] MEDS: INSULIN ASPART [NOVOLOG] 3 ML PEN SC ×2 (07:51→11:46)
[2018-09-09] MEDS: DONEPEZIL 5 MG TAB PO (08:34)
[2018-09-09] MEDS: FISH OIL 1,000 MG CAP PO (08:34)
[2018-09-09] MEDS: FLUTICASONE/VILANTEROL 200-25 INH DEVICE INH (08:34)
[2018-09-09] MEDS: EZETIMIBE 10 MG TAB PO (08:34)
[2018-09-09] MEDS: ENOXAPARIN 40 MG/0.4 ML SYG SC (08:36)
[2018-09-09] MEDS: predniSONE 20 MG TAB PO (08:39)
[2018-09-09] MEDS: IPRATROPIUM (NEB) 0.5 MG/2.5 ML AMP HHN (09:29)
[2018-09-09] MEDS: GUAIFENESIN/DM 5ML CUP PO (10:21)
[2018-09-11 16:51] LABS: IMMUNOGLOBULIN E 9163 kU/L (<OR=114)
== END 2018-09-09 14:15 | disposition home health service (06) | DRG 202 ==
LOC: E/R 16:09 → 6WM 21:58
PROVIDERS: Family Medicine
DX: J45.901 Unspecified asthma with (acute) exacerbation (principal); N39.0 Urinary tract infection, site not specified; E11.9 Type 2 diabetes mellitus without complications; J84.10 Pulmonary fibrosis, unspecified; J70.5 Respiratory conditions due to smoke inhalation; J20.9 Acute bronchitis, unspecified; F03.90 Unspecified dementia, unspecified severity, without behavioral disturbance, psychotic disturbance, mood disturbance, and anxiety; E78.5 Hyperlipidemia, unspecified; K21.9 Gastro-esophageal reflux disease without esophagitis; Z79.84 Long term (current) use of oral hypoglycemic drugs
CPT/HCPCS: 36415; 71045; 80053; 80069; 81001; 82785; 82962; 83036; 83735; 83880; 84484; 85025; 86606; 87040; 87086; 93005; 94640; 94644; 96361; 96374; 97110; 97116; 97162; 97530; 99285-25